=== PATIENT | female | born 1975 | race Caucasian/White ===

== ENCOUNTER → 2017-07-22 17:08 | Outpatient (CLI) | payer BC ==
[2013-11-08 06:11] VITALS: BMI 34.2
[~2017-07-22 17:08] MED LIST: PERCOCET 10/3251 TA1 PO
== END | disposition home or self-care (01) ==
LOC: D.MAMMO 15:30
DX: Z12.31 Encounter for screening mammogram for malignant neoplasm of breast (principal)

== ENCOUNTER → 2017-09-11 18:27 | Outpatient (CLI) | payer BC ==
[2013-11-08 06:11] VITALS: BMI 34.2
== END | disposition home or self-care (01) ==
LOC: D.MAMMO 14:00
DX: Z12.31 Encounter for screening mammogram for malignant neoplasm of breast (principal)